=== PATIENT | male | born 1975 | race African-American/Black ===

== ENCOUNTER 2018-10-11 09:33 | Emergency (ER) | payer SELFPAY ==
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
[2018-10-11] MEDS ORDERED: 0.9 % SODIUM CHLORIDE 1,000 ML IV ONE (09:52)
[2018-10-11] MEDS ORDERED: HALOPERIDOL LACTATE 5 MG/ML VIAL IM ONE ×2 (10:17→10:19)
[2018-10-11] MEDS ORDERED: LORazepam 2 MG/ML VIAL ONE (10:27)
[2018-10-11] MEDS ORDERED: LORazepam 2 MG/ML VIAL IVP ONE (10:47)
[2018-10-11 11:24] LABS: BASOPHILS % 0.6 (0.0-1.5); MEAN CORPUSCULAR HEMOGLOBIN 30.8 pg (28.0-34.0); MONOCYTES % 3.9 % (0.0-11.0)
[2018-10-11 11:25] LABS: NEUTROPHILS # 4.1 # k/uL (1.4-7.7)
[2018-10-11 11:34] LABS: eGFR (Non-African) > 60
[2018-10-11 14:14] VITALS: BP 136/88
--- NOTE | 2018-10-12 03:27 | Diagnostic Imaging Report ---
EVERT FLOREZ [facility] [address] [facility] [address] [address] Report Submission Date: Oct 11, 2018 11:58:45 AM DRIVER Patient Study Name: MALVIN SMALLS Date: Oct 11, 2018 11:27:37 AM DRIVER Modality Type: DX Gender: M Description: CHEST 1VIEW : 73 Institution: [facility] Physician: EVERT FLOREZ Portable chest History: Short of breath. Confusion Portable chest dated October 11, 2018 demonstrates a normal cardiomediastinal silhouette. Pulmonary vascularity is normal. Lungs are clear. Impression: No active disease. Electronically signed on Oct 11, 2018 11:58:45 AM DRIVER by: Alida CORBIN
--- NOTE | 2018-10-12 03:28 | Diagnostic Imaging Report ---
EVERT FLOREZ [facility] [address] [facility] [address] [place] [address]. [address] Report Submission Date: Oct 11, 2018 11:39:13 AM SALVATORE Patient Study Name: MALVIN SMALLS Date: Oct 11, 2018 11:14:27 AM BOXING PROMOTER Modality Type: CT\SR Gender: M Description: CT BRAIN W/O CONTRAST : 73 Institution: [facility] Physician: EVERT FLOREZ Head CT without contrast History: Headaches Technique: Axial images were obtained from the skull base to the vertex without IV contrast. There are no comparison studies. Findings: The ventricular system, basilar cisterns cortical sulci are within normal limits. There are areas of abnormal white matter lucency adjacent to the frontal horns bilaterally. In this patient's age group, these findings are nonspecific but consistent with a demyelinating process. Multiple sclerosis would not be excluded in this age group. Consider follow-up MRI. There is no positive mass effect or intra/extra-axial hemorrhage. There is a mucous retention cyst inferiorly of the left maxillary sinus. Otherwise, visualized paranasal sinuses and mastoid air cells are clear. The calvarium is intact. Impression: There is abnormal lucency involving periventricular white matter adjacent to the frontal horns bilaterally. These findings are consistent with a nonspecific demyelination. However, in this patient's age group, the possibility of multiple sclerosis would not be excluded. Consider follow-up MRI. Mucous retention cyst inferiorly of the left maxillary sinus. Electronically signed on Oct 11, 2018 11:39:13 AM SALVATORE by: Alida CORBIN
== END 2018-10-11 13:11 | disposition short-term general hospital (02) ==
LOC: ED 09:33
DX: R41.0 Disorientation, unspecified (principal); R90.89 Other abnormal findings on diagnostic imaging of central nervous system; Z87.820 Personal history of traumatic brain injury
CPT/HCPCS: 70450; 71045; 80053; 80320; 82550; 82553; 83880; 84484; 85025; 85379; 93005; 96372; 96374; 99285; J1630; J2060; G0480